=== PATIENT | male | born 1960 | race African-American/Black ===

== ENCOUNTER → 2017-03-08 10:14 | Outpatient (CLI) | payer OTHER ==
[2013-11-15 13:39] VITALS: BMI 33.1
[~2017-03-08 10:14] MED LIST: ALDACTONE50 MG PO; AUGMENTIN 875-11 TAB PO; BAYER CHEWABLE81 MG PO; CALAN SR240 MG PO; CALAN120 MG PO; CELEBREX200 MG PO; CRESTOR10 MG PO; DIOVAN320 MG PO; EFFIENT10 MG PO; HYDROCHLOROTHIA25 MG PO; HYDROCHLOROTHIA50 MG PO; HYDROCODONE-APA1 TAB PO; IMDUR30 MG PO; NEXIUM20 MG PO; NEXIUM40 MG PO; PLAVIX75 MG PO; TOPROL XL100 MG PO; ZYLOPRIM300 MG PO
== END | disposition home or self-care (01) ==
LOC: D.RAD 10:14
DX: Z02.71 Encounter for disability determination (principal)

== ENCOUNTER 2017-05-02 22:25 | Emergency (ER) | payer OTHER ==
[2013-11-15 13:39] VITALS: BMI 33.1
[2017-05-02 23:16] LABS: BASOPHILS 0.3 % (0-2); EOSINOPHILS 1.8 % (0-7); HEMOGLOBIN 13.5 g/dL (13.5-17.5); IMMATURE GRANULOCYTES 0.3 % (0-5); LYMPHOCYTES 29.4 % (15-50); MCH 30.5 pg (26.0-34.0); MCHC 33.8 g/dL (31.0-37.0); MCV 90.3 fL (80.0-100.0); MEAN PLATELET VOLUME 11.4 fL (7.4-10.4); MONOCYTES 10.8 % (2-11); NEUTROPHILS 57.4 % (40-80); PLATELET COUNT 225 10x3/uL (130-400); RBC 4.43 10x6/uL (4.20-6.10); RDW 14.4 % (11.5-14.5); WBC 7.8 10x3/uL (4.8-10.8)
[2017-05-02 23:38] LABS: INR 1.14 (0.85-1.17); PROTIME 14.2 SECONDS (11.6-15.0)
[2017-05-02 23:39] LABS: D-DIMER-QUANTITATIVE 0.49 ug/mLFEU (0.20-0.54)
[2017-05-02 23:56] LABS: ALBUMIN 3.3 g/dL (3.4-5.0); ALKALINE PHOSPHATASE 66 U/L (46-116); ALT (SGPT) 18 U/L (10-68); CALC OSMOLALITY 282 mosm/kg (275-300); CALCIUM 8.9 mg/dL (8.5-10.1); CARBON DIOXIDE 23.6 mmol/L (21.0-32.0); CHLORIDE - SERUM 104 mmol/L (98-107); CREATININE - SERUM 1.4 mg/dL (0.6-1.3); GLUCOSE 127 mg/dL (74-106); POTASSIUM - SERUM 3.4 mmol/L (3.5-5.1); PROTEIN - SERUM 8.3 g/dL (6.4-8.2); SODIUM 140 mmol/L (136-145); UREA NITROGEN 19 mg/dL (7-18); eGFR NON AFRICAN AMERICAN 56 mL/min (90-120)
[2017-05-03 00:13] LABS: CKMB 0.6 U/L (0.0-3.6); CREATINE KINASE 308 UL (21-232); PRO BNP 159 pg/mL (0-125); TROPONIN-I < 0.017 ng/mL (0.000-0.060)
== END 2017-05-03 04:20 | disposition home or self-care (01) ==
LOC: D.ER 22:25
PROVIDERS: Family Medicine
DX: J40 Bronchitis, not specified as acute or chronic (principal); R07.9 Chest pain, unspecified; R05 Cough; R09.89 Other specified symptoms and signs involving the circulatory and respiratory systems

== ENCOUNTER 2017-05-08 03:59 | Emergency (ER) | payer MEDICAID ==
[2013-11-15 13:39] VITALS: BMI 33.1
== END 2017-05-08 04:22 | disposition home or self-care (01) ==
LOC: D.ER 03:59
DX: M25.561 Pain in right knee (principal); I10 Essential (primary) hypertension

== ENCOUNTER 2017-05-27 06:24 | Emergency (ER) | payer MEDICAID ==
[2013-11-15 13:39] VITALS: BMI 33.1
== END 2017-05-27 06:58 | disposition home or self-care (01) ==
LOC: D.ER 06:24
DX: M25.561 Pain in right knee (principal); I10 Essential (primary) hypertension

== ENCOUNTER → 2019-07-24 09:46 | Outpatient (CLI) | payer MEDICAID ==
[2013-11-15 13:39] VITALS: BMI 33.1
== END | disposition home or self-care (01) ==
LOC: D.HCCARDIO 09:46
PROVIDERS: ATTEND Internal Medicine Cardiovascular Disease
DX: I25.10 Atherosclerotic heart disease of native coronary artery without angina pectoris (principal)

== ENCOUNTER 2019-08-22 08:41 | Outpatient (CLI) | payer MEDICAID ==
[~2019-08-22] VITALS: Ht 180.3 cm; Wt 98.2 kg
[~2019-08-22 08:41] MED LIST changes: +PENICILLIN V P500 MG PO
--- NOTE | 2019-08-22 08:54 | NUR ---
PT HAD WRONG ACCOUNT NUMBER INITIALLY. VALIUM AND NITRO PASTE DOCUMENTED ON OTHER ACCOUNT NUMBER.
[2019-08-22 08:56] VITALS: BP 137/81; Ht 180.3 cm; Wt 98.2 kg
--- NOTE | 2019-08-22 11:16 | NUR ---
PT ARRIVED BY STRETCHER. PLACED ON MONITORS. ASSESSMENT COMPLETED. VSS AT THIS TIME. CALL LIGHT WITHIN REACH.
--- NOTE | 2019-08-22 11:30 | NUR ---
PT RESTING COMFORTABLY. VSS. RIGHT GROIN DRESSING C/D/I. NO S/S OF HEMATOMA NOTED. RIGHT WRIST Z BAND IN PLACE. NO BLEEDING/HEMATOMA NOTED. CALL LIGHT WITHIN REACH.
[2019-08-22] MEDS ORDERED: RANEXA500 MG PO (11:40)
--- NOTE | 2019-08-22 12:00 | NUR ---
PT RESTING COMFORTABLY. VSS. RIGHT WRIST Z BAND IN PLACE. NO BLEEDING/HEMATOMA NOTED. RIGHT GROIN DRESSING C/D/I. NO S/S OF HEMAOTMA NOTED. CALL LIGHT WITHIN REACH.
--- NOTE | 2019-08-22 12:37 | NUR ---
RIGHT GROIN DRESSING C/D/I. NO S/S OF HEMATOMA NOTED. CALL LIGHT WITHIN REACH. VSS AT THIS TIME. PT'S HEAD OF BED INC TO 30 DEGREES. TOLERATED WELL. SET UP WITH SANDWICH TRAY AND DRINK. DENIES NAUSEA/PAIN. 2cc OF AIR REMOVED FROM Z BAND. NO BLEEDING/HEMATOMA NOTED.
--- NOTE | 2019-08-22 12:52 | NUR ---
3cc OF AIR REMOVED FROM Z BAND. NO BLEEDING/HEMATMOA NOTED. VSS AT THIS TIME. RIGHT GROIN DRESSING C/D/I. NO S/S OF HEMATOMA NOTED.
--- NOTE | 2019-08-22 13:05 | NUR ---
6CC OF AIR REMOVED FROM Z BAND. NO BLEEDING/HEMATOMA NOTED. CALL LIGHT WITHIN REACH. VSS AT THIS TIME.
--- NOTE | 2019-08-22 13:15 | NUR ---
Z BAND REMOVED AND DRESSING APPLIED. NO BLEEDING/HEMATOMA NOTED. RIGHT WRIST BRACE IN PLACE. PT TOLERATED WELL. RIGHT GROIN DRESSING C/D/I. NO S/S OF HEMATOMA NOTED.
--- NOTE | 2019-08-22 13:30 | NUR ---
PIV D/C'D WITH CATH TIP INTACT. TOLERATED WELL. INSTRUCTED TO GET UP AND DRESSED AT THIS TIME.
--- NOTE | 2019-08-22 13:34 | NUR ---
PT AMBULATED TO RESTROOM. VOIDED WITHOUT DIFFICULTY. STEADY GAIT NOTED. DISCUSSED DISCHARGE INSTRUCTIONS WITH PT. HE VOICED UNDERSTANDING.
--- NOTE | 2019-08-22 13:45 | NUR ---
RIGHT WRIST DRESSING C/D/I. NO S/S OF HEMATOMA NOTED. RIGHT GROIN DRESSING C/D/I. NO S/S OF HEMATOMA NOTED. PT TAKEN DOWN TO VEHICLE BY WHEELCHAIR. NO S/S OF DISTRESS NOTED. ALL BELONGINGS AND PAPERWORK IN HAND.
== END 2019-08-22 13:45 | disposition home or self-care (01) ==
LOC: D.CATH 08:41 → D.ECHO 09:00 → D.CATH 09:30
PROVIDERS: ATTEND Internal Medicine Cardiovascular Disease
DX: I25.119 Atherosclerotic heart disease of native coronary artery with unspecified angina pectoris (principal); R94.39 Abnormal result of other cardiovascular function study; E78.5 Hyperlipidemia, unspecified; I10 Essential (primary) hypertension; K21.9 Gastro-esophageal reflux disease without esophagitis; Z72.0 Tobacco use